=== PATIENT | female | born 1995 ===

== ENCOUNTER 2021-03-15 12:50 | Outpatient (REF) | payer MEDICAID, SELFPAY ==
[2021-03-15 13:58] LABS: HCG Quantitative < 2 mIU/mL
== END 2021-03-15 12:51 | disposition home or self-care (01) ==
LOC: HO.LAB 12:50
PROVIDERS: Visit Provider Family Medicine
DX: N92.6 Irregular menstruation, unspecified (principal)
CPT/HCPCS: 36415; 84702